=== PATIENT | female | born 1975 | race African-American/Black ===

== ENCOUNTER → 2017-02-24 | Outpatient (CLI) | payer OTHER ==
[~2017-02-24] VITALS: Ht 154.9 cm; Wt 113.4 kg
[~2017-02-24] MED LIST: AZIT250T6 PO; FERR-26 PO; FERR325T31 PO; HYDR-2666 PO; HYDR-971 PO; LABE200T2 PO; NAPR500T3 PO; NIFE60TA PO; PNV1TABL25 PO; SERT100T PO
[2017-02-24 10:54] VITALS: BP 186/98
== END | disposition home or self-care (01) ==
LOC: OPS 09:07
PROVIDERS: ATTEND Specialist
DX: Z32.02 Encounter for pregnancy test, result negative (principal)
CPT/HCPCS: 36415; 86850; 86900; 86901; 96372; J2791

== ENCOUNTER 2017-03-19 16:11 | Inpatient (IN) | payer OTHER ==
[~2017-03-19] VITALS: Ht 157.5 cm; Wt 123.4 kg
[2017-03-19] MEDS ORDERED: IV RINGERS,LACTATED 1000ML 1,000 ML IV SCH (17:00)
[2017-03-19 17:56] LABS: BASO # 0.1 x10^3/uL (0.0-0.2); BASO % 1 % (0-3); EOS % 1 % (0-3); HEMATOCRIT 33.1 % (36.0-47.0); HEMOGLOBIN 10.4 g/dL (12.0-15.5); LYMPH # 1.5 x10^3/uL (1.0-4.8); LYMPH % 17 % (24-48); MEAN CORPUSCULAR HEMOGLOBIN 23 pg (25-35); MEAN CORPUSCULAR HGB CONC 32 g/dL (31-37); MEAN CORPUSCULAR VOLUME 73 fL (79-100); MONO % 11 % (0-9); NEUT % 70 % (31-73); PLATELET COUNT 233 x10^3/uL (140-400); RED BLOOD COUNT 4.52 x10^6/uL (3.50-5.40); WHITE BLOOD COUNT 8.9 x10^3/uL (4.0-11.0)
[2017-03-19 18:10] LABS: ALBUMIN 2.5 g/dL (3.4-5.0); ALBUMIN/GLOBULIN RATIO 0.6 (1.0-1.7); CALCIUM 8.9 mg/dL (8.5-10.1); GFR 73.6; POTASSIUM 4.1 mmol/L (3.5-5.1); TOTAL BILIRUBIN 0.2 mg/dL (0.2-1.0); TOTAL PROTEIN 6.8 g/dL (6.4-8.2); URIC ACID 4.7 mg/dL (2.6-6.0)
[2017-03-19 19:18] LABS: BILIRUBIN,URINE NEGATIVE (NEG); GLUCOSE,URINE NEGATIVE (NEG); NITRITE,URINE NEGATIVE (NEG); PROTEIN,URINE 30 mg/dL (NEG-TRACE); UROBILINOGEN,URINE 0.2 mg/dL (0.2 mg/dL)
[2017-03-19] MEDS: BETAMET ACET&NA PHOS 30 MG/5 ML VIAL. IM SCH (19:23)
[2017-03-19 19:37] LABS: BACTERIA,URINE FEW /HPF (0-FEW); SQUAMOUS EPITHELIAL CELL,UR MOD /LPF
[2017-03-19] MEDS: ZOLPIDEM 5 MG TABLET. PO PRN (21:07)
[2017-03-19] MEDS: LABETALOL HCL 100 MG TABLET. PO SCH (21:10)
[2017-03-20] MEDS: ZOLPIDEM 5 MG TABLET. PO PRN (01:15)
[2017-03-20 04:47] LABS: HEMATOCRIT 32.5 % (36.0-47.0); HEMOGLOBIN 10.1 g/dL (12.0-15.5); RED BLOOD COUNT 4.44 x10^6/uL (3.50-5.40); RED CELL DISTRIBUTION WIDTH 17.5 % (11.5-14.5); WHITE BLOOD COUNT 11.7 x10^3/uL (4.0-11.0)
[2017-03-20 05:31] LABS: ALBUMIN 2.6 g/dL (3.4-5.0); ALBUMIN/GLOBULIN RATIO 0.7 (1.0-1.7); CALCIUM 8.9 mg/dL (8.5-10.1); CREATININE 0.8 mg/dL (0.6-1.0); GFR 95.2; POTASSIUM 4.4 mmol/L (3.5-5.1); TOTAL BILIRUBIN 0.2 mg/dL (0.2-1.0); TOTAL PROTEIN 6.5 g/dL (6.4-8.2)
[2017-03-20] MEDS ORDERED: ACETAMINOPHEN 500 MG TABLET PO PRN (05:45)
[2017-03-20] MEDS: LABETALOL HCL 100 MG TABLET. PO SCH ×2 (09:19→20:54)
[2017-03-20] MEDS ORDERED: DINOPROSTONE 10 MG SUPP.VAG VG ONE (12:00)
[2017-03-20] MEDS ORDERED: IV RINGERS,LACTATED 1000ML 1,000 ML IV SCH (14:33)
[2017-03-20] MEDS ORDERED: OXYTOCIN 30 UNIT/500 ML PREMIX 500 ML IV PRN (14:45)
[2017-03-20] MEDS ORDERED: IBUPROFEN 800 MG TABLET. PO PRN (14:45)
[2017-03-20] MEDS ORDERED: BUPIVACAINE 0.5% 50 ML VIAL. INFIL ONE (14:45)
[2017-03-20] MEDS ORDERED: fentaNYL PF VIAL 100 MCG/2 ML VIAL IV PRN (14:45)
[2017-03-20] MEDS ORDERED: 0.9 % SODIUM CHLORIDE 10 ML DISP.SYRIN. IV PRN (14:45)
[2017-03-20] MEDS ORDERED: TERBUTALINE 1 MG/ML VIAL. SQ PRN (14:45)
[2017-03-20] MEDS ORDERED: LIDOCAINE 1% PF 30 ML VIAL. INJ PRN (14:45)
[2017-03-20] MEDS ORDERED: AMPICILLIN SODIUM 2 GM in IV NORMAL SALINE 100ML 100 ML IV ONE (16:00)
[2017-03-20] MEDS: BETAMET ACET&NA PHOS 30 MG/5 ML VIAL. IM SCH (19:24)
[2017-03-20] MEDS ORDERED: AMPICILLIN SODIUM 1 GM in IV NORMAL SALINE 50ML 50 ML IV SCH (20:00)
[2017-03-20] MEDS: DOXEPIN HCL 25 MG CAPSULE. PO PRN (23:56)
[2017-03-21] MEDS ORDERED: DINOPROSTONE 10 MG SUPP.VAG VG ONE (00:30)
[2017-03-21] MEDS: LABETALOL HCL 100 MG TABLET. PO SCH ×2 (09:25→22:04)
--- NOTE | 2017-03-21 15:27 | RAD ---
Indication evaluate position. A very appreciated examination was performed. The examination was performed primarily to assess for position of the fetus. The fetus is in breech presentation. heart rate of 163 was documented. The biparietal diameter of 9.1 cm and abdominal circumference of 32.3 cm suggest a gestational age of approximately 36 weeks. Femoral length of approximately 6.7 cm suggested gestational age of 34-35 weeks. IMPRESSION: Fetus in breech presentation. Estimated gestational age approximately 35 weeks
[2017-03-21] MEDS ORDERED: IV RINGERS,LACTATED 1000ML 1,000 ML IV SCH (15:35)
[2017-03-21] MEDS ORDERED: CITRIC ACID/SODIUM CITRATE 30 ML SOLUTION. PO ONE (15:45)
[2017-03-21] MEDS: IV RINGERS,LACTATED 1000ML 1,000 ML IV SCH ×2 (16:07→21:27)
[2017-03-21 17:06] LABS: BASO % 0 % (0-3); EOS % 0 % (0-3); HEMATOCRIT 31.3 % (36.0-47.0); HEMOGLOBIN 10.1 g/dL (12.0-15.5); LYMPH # 1.4 x10^3/uL (1.0-4.8); LYMPH % 9 % (24-48); MEAN CORPUSCULAR HEMOGLOBIN 23 pg (25-35); MEAN CORPUSCULAR HGB CONC 32 g/dL (31-37); MEAN CORPUSCULAR VOLUME 72 fL (79-100); MONO % 10 % (0-9); NEUT % 80 % (31-73); PLATELET COUNT 259 x10^3/uL (140-400); RED BLOOD COUNT 4.34 x10^6/uL (3.50-5.40); RED CELL DISTRIBUTION WIDTH 18.3 % (11.5-14.5); WHITE BLOOD COUNT 15.5 x10^3/uL (4.0-11.0)
[2017-03-21] MEDS ORDERED: MORPHINE PF 5 MG/10 ML VIAL. ONE (19:04)
[2017-03-21] MEDS ORDERED: fentaNYL PF VIAL 100 MCG/2 ML VIAL ONE (19:04)
[2017-03-21] MEDS ORDERED: PHENYLEPHRINE in 0.9% NACL PF 1 MG/10 ML DISP.SYRIN. IV ONE (19:20)
[2017-03-21] MEDS ORDERED: OXYTOCIN 10 UNIT/ML VIAL. ONE (19:27)
--- NOTE | 2017-03-21 20:26 | PDOC ---
BRIEF OPERATIVE NOTE Pre-Op Diagnosis 35wk PIH Post-Op Diagnosis Failed induction Breech Procedure Performed primary LTC/S Surgeon Matteo Anesthesia Type: Regional Blood Loss 1300cc Specimens Obtained Placenta Complications None MEGAN MILLER MD March 21, 2017 20:26
[2017-03-21] MEDS ORDERED: SIMETHICONE 80 MG TAB.CHEW PO PRN (20:30)
[2017-03-21] MEDS ORDERED: MMR per PROTOCOL. MC PRN (20:30)
[2017-03-21] MEDS ORDERED: OXYTOCIN 30 UNIT/500 ML PREMIX 500 ML IV PRN (20:30)
[2017-03-21] MEDS ORDERED: ONDANSETRON PF 4 MG/2 ML VIAL. IV PRN (20:30)
[2017-03-21] MEDS ORDERED: MAGNESIUM HYDROXIDE 2,400 MG/30 ML ORAL.SUSP. PO PRN (20:30)
[2017-03-21] MEDS ORDERED: 0.9 % SODIUM CHLORIDE 10 ML DISP.SYRIN. IV PRN (20:30)
[2017-03-21] MEDS ORDERED: oxyCODONE/APAP 5/325 1 TAB TABLET PO PRN ×2 (20:30)
[2017-03-21] MEDS ORDERED: ZOLPIDEM 5 MG TABLET. PO PRN (20:30)
[2017-03-21] MEDS ORDERED: MAG HYDROX/ALUMINUM HYD/SIMETH 30 ML ORAL.SUSP PO PRN (20:30)
[2017-03-21] MEDS ORDERED: NAPROXEN 500 MG TABLET PO SCH (21:00)
[2017-03-21 21:21] LABS: HEMATOCRIT 30.6 % (36.0-47.0); HEMOGLOBIN 9.6 g/dL (12.0-15.5); RED BLOOD COUNT 4.14 x10^6/uL (3.50-5.40); RED CELL DISTRIBUTION WIDTH 18.2 % (11.5-14.5); WHITE BLOOD COUNT 15.2 x10^3/uL (4.0-11.0)
[2017-03-21] MEDS: IBUPROFEN 800 MG TABLET. PO SCH (22:00)
[2017-03-21] MEDS ORDERED: ONDA4TAB10 PO (22:26)
[2017-03-21 23:00] VITALS: BP 154/83
[2017-03-21] MEDS ORDERED: KETOROLAC TROMETHAMINE 30 MG/ML INJ. IV PRN (23:45)
[2017-03-22] VITALS (8 sets, daily range): BP systolic 122–152; BP diastolic 64–86
[2017-03-22] MEDS: diphenhydrAMINE ORAL ELIXIR 12.5 MG/5 ML ML PO PRN ×2 (00:20→05:49)
[2017-03-22] MEDS: IV RINGERS,LACTATED 1000ML 1,000 ML IV SCH (04:17)
[2017-03-22 05:24] LABS: BASO % 0 % (0-3); EOS % 0 % (0-3); HEMATOCRIT 27.5 % (36.0-47.0); HEMOGLOBIN 8.5 g/dL (12.0-15.5); LYMPH # 1.9 x10^3/uL (1.0-4.8); LYMPH % 13 % (24-48); MEAN CORPUSCULAR HEMOGLOBIN 23 pg (25-35); MEAN CORPUSCULAR HGB CONC 31 g/dL (31-37); MEAN CORPUSCULAR VOLUME 74 fL (79-100); MONO % 12 % (0-9); NEUT % 75 % (31-73); PLATELET COUNT 229 x10^3/uL (140-400); RED BLOOD COUNT 3.72 x10^6/uL (3.50-5.40); RED CELL DISTRIBUTION WIDTH 17.7 % (11.5-14.5); WHITE BLOOD COUNT 14.6 x10^3/uL (4.0-11.0)
[2017-03-22] MEDS: DOCUSATE SODIUM 100 MG CAPSULE. PO PRN ×2 (08:27→21:17)
[2017-03-22] MEDS: FERROUS SULFATE 325 MG TABLET. PO SCH ×2 (08:27→17:26)
[2017-03-22] MEDS: oxyCODONE/APAP 5/325 1 TAB TABLET PO PRN (09:35)
[2017-03-22] MEDS: IBUPROFEN 800 MG TABLET. PO SCH ×2 (11:39→21:17)
--- NOTE | 2017-03-22 13:27 | PDOC ---
Provider Note Provider Note Doing well VSS Hgb 8.5 Dressing CDI Check CBC in AM FU in AM MEGAN MILLER MD March 22, 2017 13:27
[2017-03-22] MEDS: DOXEPIN HCL 25 MG CAPSULE. PO PRN (21:17)
[2017-03-22] MEDS: LABETALOL HCL 100 MG TABLET. PO SCH (21:19)
[2017-03-22 22:13] LABS: RPR REFLEX Non Reactive (Non Reactive)
[2017-03-23] MEDS: oxyCODONE/APAP 5/325 1 TAB TABLET PO PRN ×2 (05:41→12:01)
[2017-03-23 05:45] VITALS: BP 157/82
[2017-03-23 06:47] LABS: BASO # 0.1 x10^3/uL (0.0-0.2); BASO % 1 % (0-3); EOS % 3 % (0-3); HEMATOCRIT 27.1 % (36.0-47.0); HEMOGLOBIN 8.5 g/dL (12.0-15.5); LYMPH # 2.5 x10^3/uL (1.0-4.8); LYMPH % 19 % (24-48); MEAN CORPUSCULAR HEMOGLOBIN 23 pg (25-35); MEAN CORPUSCULAR HGB CONC 31 g/dL (31-37); MEAN CORPUSCULAR VOLUME 74 fL (79-100); MONO % 10 % (0-9); NEUT % 67 % (31-73); PLATELET COUNT 205 x10^3/uL (140-400); RED BLOOD COUNT 3.66 x10^6/uL (3.50-5.40); RED CELL DISTRIBUTION WIDTH 18.2 % (11.5-14.5); WHITE BLOOD COUNT 13.6 x10^3/uL (4.0-11.0)
[2017-03-23] MEDS: FERROUS SULFATE 325 MG TABLET. PO SCH (09:58)
[2017-03-23] MEDS: IBUPROFEN 800 MG TABLET. PO SCH (09:58)
[2017-03-23] MEDS: DOCUSATE SODIUM 100 MG CAPSULE. PO PRN (09:58)
[2017-03-23] MEDS: LABETALOL HCL 100 MG TABLET. PO SCH (09:58)
[2017-03-23] MEDS ORDERED: NAPR500T PO (10:12)
[2017-03-23] MEDS ORDERED: HYDR-965 PO (10:12)
[2017-03-23 10:27] LABS: UR PROTEIN RD 58.8 mg/dL (Not Estab.)
[2017-03-23 10:59] LABS: % EOS 1 % (0-5)
[2017-03-23 11:00] LABS: PLT ESTIMATE ADEQUATE (ADEQUATE)
[2017-03-23 11:01] LABS: ANISOCYTOSIS SLIGHT; HYPOCHROMIA PRESENT; MICROCYTOSIS SLIGHT
[2017-03-23 13:30] VITALS: BP 125/54
--- NOTE | 2017-03-25 13:11 | PATHOLOGY ---
PATHOLOGY REPORT * * * * * * * * FINAL DIAGNOSIS: 642 gram late placenta of an estimated 35 weeks gestation with attached membranes and umbilical cord: - Focal recent intervillous hemorrhage. COMMENT: There are no infarcts. There is no evidence of abruption. (JENNIFERM:; d/t: 03/25/17) REPORT ELECTRONICALLY SIGNED BY: Taj Aggarwal M.D. DATE/TIME: 03/25/2017 13:10 * * * * * * * * GROSS PATHOLOGY: The specimen is received in formalin labeled "Jonathan" is a 19.3 x 17.6 x 3.0 cm watkins placenta with a 46 cm long umbilical cord. The 3 vessel umbilical cord inserts paracentrally with 4 twists per 5-6 cm. The membranes are bluish noble with marginal insertion. The point of rupture is 4 cm from the edge of the disc. The surface is intact. The maternal surface is also intact. After removal of the membranes and umbilical cord, the placenta weighs 642 g. Sectioning reveals a red beefy unremarkable cut surface. Section code: A1-membranes and umbilical cord, [id number] section adjacent to umbilical cord insertion site, A3 through [id number] accounts payable representative sections of placenta full thickness. (AKA; 03/24/2017) INITIAL CPT CODE(S): A; 13833 Professional services performed by [facility] [place] [address] Technical services performed by [facility] at [address] [place] [address] [address] [place] [address]. SPECIMEN(S) RECEIVED: A.Placenta with cord CLINICAL HISTORY: IUP, for breech position, EDC 04/24/17, 5lb 15oz male @ 1932 on 03/21/17, apgars 8-8-9, , PIH, baby transferred to [facility] PATIENT: MELODY YEAGER /AGE: 1 1975 (Age: 41) PATIENT #: [id number] ALT CASE #: SPECIMEN COLLECTION DATE: 03/21/2017 SPECIMEN RECEIVED DATE: 03/23/2017 [facility] - [address] [place] [address] - PHONE: [phone] * * * END OF REPORT * * *
--- NOTE | 2017-03-30 22:48 | OP ---
DATE OF SURGERY: 03/21/2017 PREOPERATIVE DIAGNOSES: 1. Failed induction. 2. Breech presentation. 3. -induced hypertension. POSTOPERATIVE DIAGNOSES: 1. Failed induction. 2. Breech presentation. PROCEDURE: Primary low-transverse . SURGEON: Onur Felipe M.D. CREATIVE ARTS THERAPIST: None. ANESTHESIA: Regional. ESTIMATED BLOOD LOSS: 1300 mL. SPECIMENS: Placenta. FINDINGS: Normal uterus, tubes, and ovaries, normal male . COMPLICATIONS: None. CONDITION: Stable. DESCRIPTION OF PROCEDURE: After risks, benefits, indications, alternatives were discussed in detail with the patient, the patient was brought to the OR theater, placed in supine position with left lateral uterine displacement. After adequate regional anesthesia, the patient prepped and draped in usual sterile manner. A low transverse Pfannenstiel incision was made sharply with scalpel, carried down through subcutaneous tissue with Bovie cautery. Rectus fascia was nicked in the midline and extended laterally in each direction with Bovie cautery. Upper edge of rectus fascia was grasped x 2 with Arline clamps and elevated above the rectus muscle, both bluntly and sharply with a gloved hand and Bovie cautery. Rectus muscle split in the midline. Parietal peritoneum was entered bluntly with gentle stretch on the rectus muscle and room was made for delivery of the infant. Anton retractor was placed. Low transverse hysterotomy incision was made sharply with a scalpel with care not injuring underlying structures. The incision was extended upward and laterally with gloved hand. Gloved hand was placed within the lower uterine segment after membranes were ruptured with Allis clamp. ____ was delivered in usual fashion without any difficulties. cried spontaneously and moved all extremities. Cord was doubly clamped. The was handed off to nursing care in attendance. Cord blood samples were taken. Placenta delivered spontaneously intact, 3-vessel cord. Uterus was wiped clean of any adherent membranes with a laparotomy sponge. A low transverse hysterotomy incision was reapproximated with 0 Monocryl in a running locking manner, imbricated with 0 Monocryl in a vertical mattress stitch fashion. The bladder flap was reapproximated with 3-0 Vicryl in a running manner. Pelvic gutters were inspected and noted to be free of any blood or debris. The Anton retractor was removed. Rectus muscles reapproximated with 3-0 Vicryl in a running manner. The rectus muscles were inspected and noted to be hemostatic. Rectus fascia was reapproximated with 0 PDS in a running manner. Subcutaneous tissue was irrigated copiously with warm normal saline. Chely's fascia was reapproximated with 2-0 plain. Skin was reapproximated with Insorb kisha. Sponge, needle and instrument counts were correct x 2 per nursing staff. The patient went to postop anesthesia recovery in stable condition. ONUR FELIPE MD DR: LON/peter JOB#: [id number] / [id number]
--- NOTE | 2017-04-02 13:48 | PDOC1 ---
OB - History Hx of Present Care: Good Care Ultrasounds: Normal mid trimester US Obstetrical Complications: Pre-eclampsia, Gestational Hypertension Medical Complications: Cardiovascular Past Family/Social History * Past Medical, Surgical, Family and Obstetric Histories reviewed from chart. Blood Type: O- Rubella: Immune RPR/VDRL: Negative HBsAG: Negative OB - Chief Complaint & HPI Date of Admission: Date of Admission: March 19, 2017 at 16:15 Chief Complaint/History : 4 Para: 1 EDC: Apr 24, 2017 Reason for admission: induction of labor Indication for induction: medical complication Admission Nurse Assessment Rev: Yes Problems: OB - Admission Exam Physical Exam HEENT: Normal, Nasal Mucosa Normal, Oropharynx Normal, Moist Membranes, Fontanelles Normal Heart: Regular Rate Lungs: Clear, Equal Abdomen: Gravid Extremities: Normal Pulses, No tenderness or swelling Reflexes: Normal Cervical Dilatation: None Effacement: 50% Station: Ballotable Membranes: Intact Heart Rate: Normal Accelerations: Accelerations Present Contractions on Admission: None Assessment/Plan Assessment/Plan 35wk IUP Severe preeclampsia Cervidil induction ACSVD MEGAN MILLER MD April 02, 2017 13:48
== END 2017-03-23 14:30 | disposition home or self-care (01) | DRG 766 ==
LOC: 3 SO LND 16:11 → OBSVTOIN 16:15 → 3 SO LND 03-20 13:37
PROVIDERS: ADMIT Specialist; ATTEND Specialist
PROC: 10D00Z1 Extraction of Products of Conception, Low, Open Approach (ICD-10-PCS; principal; 2017-03-21)
PROC: 3E0334Z Introduction of Serum, Toxoid and Vaccine into Peripheral Vein, Percutaneous Approach (ICD-10-PCS; 2017-03-22)
DX: O32.9XX0 Maternal care for malpresentation of fetus, unspecified, not applicable or unspecified (principal); Z37.0 Single live birth; Z3A.35 35 weeks gestation of pregnancy; O13.4 Gestational [pregnancy-induced] hypertension without significant proteinuria, complicating childbirth; O61.9 Failed induction of labor, unspecified; O09.523 Supervision of elderly multigravida, third trimester; O14.94 Unspecified pre-eclampsia, complicating childbirth
CPT/HCPCS: 36415; 76815; 80053; 81001; 82570; 84156; 84550; 85007; 85027; 85461; 86593; 86850; 86870; 86900; 86901; 87086; 88307; G0378; G0379; J0690; J0702; J1885; J2270; J2370; J2590; J2791; J3010; J7120

== ENCOUNTER 2017-05-31 22:42 | Emergency (ER) | payer OTHER ==
[~2017-05-31] VITALS: Ht 154.9 cm; Wt 113.4 kg
[~2017-05-31 22:42] MED LIST changes: +FERR-36 PO; -FERR325T31 PO; -HYDR-2666 PO; +HYDR-2758 PO; +HYDR-965 PO; +NAPR500T PO; +ONDA4TAB10 PO
[2017-06-01 00:17] VITALS: BP 166/87
--- NOTE | 2017-06-01 00:18 | PHYS DOC ---
Past Medical History Past Medical History: Anxiety, Hypertension Additional Past Medical Histor: TUBAL Past Surgical History: , Other Additional Past Surgical Histo: BREAST REDUCTION AND TUBAL LIGATION Alcohol Use: None Drug Use: None Adult General Chief Complaint Chief Complaint: HYPERTENSION HPI HPI Patient is a 41 year old female who comes to the ED with the complaint of elevated blood pressure today. The patient does have a history of hypertension. She had hypertension treated with amlodipine, before she got , and was then switched to labetalol by her CYTOLOGY MANAGER doctor, Dr. Felipe. She took labetalol during her and delivered in early March. Her blood pressure continued to run high at about 2 months ago she was increased to labetalol 200 mg twice a day. She has been taking it as directed and has not missed any doses. Today, the patient had a headache. She didn't take anything for her headache. She thought it might get better if she went swimming and in fact she did go swimming and her headache did go away. After swimming and resolution of her headache, she rechecked her blood pressure and found it was still running high in the 170 systolic range which concerned her so she came to the ED. She has not had her evening dose of labetalol yet. The patient is breast-feeding. PCP, she sees a nurse practitioner in Dr. Jordan's office. Review of Systems Review of Systems Constitutional: Denies fever or chills [] Eyes: Denies change in visual acuity, redness, or eye pain [] HENT: Denies nasal congestion or sore throat [] Respiratory: Denies shortness of breath [] Cardiovascular: Denies chest pain GI: Denies nausea, vomiting, bloody stools or diarrhea [] Musculoskeletal: Denies back pain or joint pain [] Integument: Denies rash or skin lesions [] Neurologic: She had a bi frontal headache earlier today but it went away without treatment Allergies Allergies Allergies Coded Allergies Type Severity Reaction Last Updated Verified No Known Drug Allergies 02/24/17 No Physical Exam Physical Exam Constitutional: Well developed, well nourished, no acute distress, non-toxic appearance. Alert, mentating normally. HENT: Normocephalic, atraumatic, bilateral external ears normal, nose normal. [ ] Eyes: conjunctiva normal, no discharge. [] Neck: Normal range of motion, no stridor. [] Cardiovascular:Heart rate regular rhythm, no murmur [] Lungs & Thorax: Bilateral breath sounds clear to auscultation [] Skin: Warm, dry, no erythema, no rash. [] Extremities: No tenderness, no cyanosis, no clubbing, ROM intact, no edema. [] Neurologic: Alert and oriented X 3, normal motor function, normal sensory function, no focal deficits noted. [] Current Patient Data Vital Signs Vital Signs Date Time Temp Pulse Resp B/P (MAP) Pulse Ox O2 Delivery O2 Flow Rate FiO2 06/01/17 00:17 84 18 166/87 (113) 96 Room Air 05/31/17 23:02 98.7 98.7 EKG EKG [] Radiology/Procedures Radiology/Procedures [] Course & Med Decision Making Course & Med Decision Making Pertinent Labs and Imaging studies reviewed. (See chart for details) Blood pressure here is 166/87 41-year-old female presents with her blood pressure running high today. She is a patient with a history of hypertension before she got , has gone through with treatment of her hypertension and delivery on March 21, and continues to have elevated blood pressure. I don't believe the patient has preeclampsia/eclampsia at this time, she has been simply a lady who has had hypertension for some time. Although she had a headache earlier today, it went away without any treatment and she now has no complaints other than her concern for her blood pressure. I discussed with the patient that I like to leave blood pressure treatment up to her OB physician since she is still breast-feeding. I reassured her that although her blood pressure is moderately elevated, I believe she can safely take her dose of labetalol that is due and follow-up by calling the office tomorrow. She feels comfortable with that plan. [] Dragon Disclaimer Dragon Disclaimer This electronic medical record was generated, in whole or in part, using a voice recognition dictation system. Departure Departure Impression: Primary Impression: Hypertension Disposition: 01 HOME, SELF-CARE Condition: STABLE Referrals: MISSAEL JORDAN MD (PCP) Patient Instructions: Hypertension Additional Instructions: Go ahead and take your evening dose of labetalol that is scheduled. If you need to take Tylenol (acetaminophen) or ibuprofen (Motrin or Advil) for headache, these are safe to take while you are breast-feeding. Call Dr. Felipe's office tomorrow and let him know that your blood pressure is still running high and see what he recommends. Follow-up with Dr. Felipe for further blood pressure management. As long as you are breast-feeding, we need to be cautious of what medication to take since they will get into your breastmilk and go to your baby. DUNG CALDERON MD Jun 01, 2017 00:18
--- NOTE | 2017-06-01 10:42 | EKG ---
[facility] [address] [place] [address] Test Date: 2017-05-31 Test Time: 22:56:53 Pat Name: MELODY YEAGER Department: Room: Gender: F Lawn Care Specialist: : 1975 Requested By: DUNG CALDERON Order Number: [id number] Reading MD: Measurements Intervals Elliott Rate: 88 P: 43 NE: 152 QRS: -4 QRSD: 86 T: 42 QT: 406 QTc: 495 Interpretive Statements SINUS RHYTHM LEFT ATRIAL ABNORMALITY LEFTWARD AXIS PROLONGED QT ABNORMAL ECG RI6.01 No previous ECG available for comparison
== END 2017-06-01 00:35 | disposition home or self-care (01) ==
LOC: ER 22:42
DX: I10 Essential (primary) hypertension (principal); F41.9 Anxiety disorder, unspecified
CPT/HCPCS: 93005; 99284-25

== ENCOUNTER 2017-10-18 09:51 | Emergency (ER) | payer OTHER, BC ==
[~2017-10-18] VITALS: Ht 157.5 cm; Wt 117.9 kg
[~2017-10-18 09:51] MED LIST changes: +NAPR-683 PO; -NAPR500T PO; -NAPR500T3 PO; +NAPR500T4 PO
[2017-10-18] MEDS ORDERED: IV NORMAL SALINE 1000ML BAG 1,000 ML IV SCH (10:25)
[2017-10-18] MEDS ORDERED: ONDANSETRON PF 4 MG/2 ML VIAL. IV ONE (10:30)
[2017-10-18 10:56] LABS: BASO % 0 % (0-3); EOS % 1 % (0-3); HEMOGLOBIN 12.6 g/dL (12.0-15.5); LYMPH # 0.8 x10^3/uL (1.0-4.8); LYMPH % 10 % (24-48); MEAN CORPUSCULAR HEMOGLOBIN 24 pg (25-35); MEAN CORPUSCULAR HGB CONC 31 g/dL (31-37); MEAN CORPUSCULAR VOLUME 77 fL (79-100); MONO % 8 % (0-9); NEUT % 81 % (31-73); PLATELET COUNT 246 x10^3/uL (140-400); RED BLOOD COUNT 5.18 x10^6/uL (3.50-5.40); RED CELL DISTRIBUTION WIDTH 17.2 % (11.5-14.5); WHITE BLOOD COUNT 7.5 x10^3/uL (4.0-11.0)
[2017-10-18 10:57] LABS: BILIRUBIN,URINE NEGATIVE (NEG); GLUCOSE,URINE NEGATIVE (NEG); NITRITE,URINE NEGATIVE (NEG); PH,URINE 6.5; PROTEIN,URINE 100 mg/dL (NEG-TRACE); UROBILINOGEN,URINE 0.2 mg/dL (0.2 mg/dL)
[2017-10-18 11:04] LABS: CALCIUM 8.6 mg/dL (8.5-10.1); CREATININE 1.1 mg/dL (0.6-1.0); GFR 65.9; POTASSIUM 3.2 mmol/L (3.5-5.1)
[2017-10-18 11:11] LABS: ALBUMIN 3.6 g/dL (3.4-5.0); DIRECT BILIRUBIN 0.1 mg/dL (0.0-0.2); TOTAL BILIRUBIN 0.4 mg/dL (0.2-1.0); TOTAL PROTEIN 7.6 g/dL (6.4-8.2)
--- NOTE | 2017-10-18 11:17 | PHYS DOC ---
Past Medical History Past Medical History: Anxiety, Hypertension Additional Past Medical Histor: TUBAL Past Surgical History: , Other Additional Past Surgical Histo: BREAST REDUCTION AND TUBAL LIGATION Alcohol Use: None Drug Use: None Adult General Chief Complaint Chief Complaint: NAUSEA/VOMITING/DIARRHA HPI HPI Patient is a 41 year old -Tog[place] female who presents with nausea and vomiting. She states that her 2-year-old daughter was diagnosed with some nausea prior to 4 days ago seen at [facility] given Zofran. Last night the family ate at [employer] and then early this morning he started having nausea vomiting diarrhea. Patient states that she's only had vomiting and nausea. She's vomited several times nonbloody nonbilious vomiting. She denies any abdominal pain, she does get some cramps occasionally. She thought she was constipated since she took some MiraLAX this morning. Still has not had a bowel movement. She is a male in the halls with her 2-year-old daughter in no acute distress. Review of Systems Review of Systems Constitutional: Denies fever or chills [] Eyes: Denies change in visual acuity, redness, or eye pain [] HENT: Denies nasal congestion or sore throat [] Respiratory: Denies cough or shortness of breath [] Cardiovascular: No additional information not addressed in HPI [] GI: Denies abdominal pain, bloody stools or diarrhea, positive for nausea, vomiting, : Denies dysuria or hematuria [] Musculoskeletal: Denies back pain or joint pain [] Integument: Denies rash or skin lesions [] Neurologic: Denies headache, focal weakness or sensory changes [] Endocrine: Denies polyuria or polydipsia [] All other systems were reviewed and found to be within normal limits, except as documented in this note. Current Medications Current Medications Current Medications Medications (Trade) Dose Ordered Sig/Jamari Start Time Stop Time Status Last Admin Dose Admin Ondansetron HCl (Zofran) 4 mg 1X ONCE 10/18/17 10:30 10/18/17 10:31 DC 10/18/17 11:04 4 MG Sodium Chloride 1,000 ml @ 1,000 mls/hr Q1H 10/18/17 10:25 10/18/17 11:24 DC 10/18/17 11:04 1,000 MLS/HR Allergies Allergies Allergies Coded Allergies Type Severity Reaction Last Updated Verified No Known Drug Allergies 02/24/17 No Physical Exam Physical Exam Constitutional: Well developed, well nourished, no acute distress, non-toxic appearance. [] HENT: Normocephalic, atraumatic, bilateral external ears normal, oropharynx moist, no oral exudates, nose normal. [] Eyes: PERRLA, EOMI, conjunctiva normal, no discharge. [] Neck: Normal range of motion, no tenderness, supple, no stridor. [] Cardiovascular:Heart rate regular rhythm, no murmur [] Lungs & Thorax: Bilateral breath sounds clear to auscultation [] Abdomen: Bowel sounds normal, soft, no tenderness, no masses, no pulsatile masses. [] Skin: Warm, dry, no erythema, no rash. [] Back: No tenderness, no CVA tenderness. [] Extremities: No tenderness, no cyanosis, no clubbing, ROM intact, no edema. [] Neurologic: Alert and oriented X 3, normal motor function, normal sensory function, no focal deficits noted. [] Psychologic: Affect normal, judgement normal, mood normal. [] Current Patient Data Vital Signs Vital Signs Date Time Temp Pulse Resp B/P (MAP) Pulse Ox O2 Delivery O2 Flow Rate FiO2 10/18/17 11:03 91 149/97 (114) 96 Room Air 10/18/17 10:17 98.9 16 98.9 Lab Values Laboratory Tests Test 10/18/17 10:38 10/18/17 10:45 10/18/17 10:48 White Blood Count 7.5 x10^3/uL (4.0-11.0) Red Blood Count 5.18 x10^6/uL (3.50-5.40) Hemoglobin 12.6 g/dL (12.0-15.5) Hematocrit 40.0 % (36.0-47.0) Mean Corpuscular Volume 77 fL (79-100) L Mean Corpuscular Hemoglobin 24 pg (25-35) L Mean Corpuscular Hemoglobin Concent 31 g/dL (31-37) Red Cell Distribution Width 17.2 % (11.5-14.5) H Platelet Count 246 x10^3/uL (140-400) Neutrophils (%) (Auto) 81 % (31-73) H Lymphocytes (%) (Auto) 10 % (24-48) L Monocytes (%) (Auto) 8 % (0-9) Eosinophils (%) (Auto) 1 % (0-3) Basophils (%) (Auto) 0 % (0-3) Neutrophils # (Auto) 6.0 x10^3uL (1.8-7.7) Lymphocytes # (Auto) 0.8 x10^3/uL (1.0-4.8) L Monocytes # (Auto) 0.6 x10^3/uL (0.0-1.1) Eosinophils # (Auto) 0.1 x10^3/uL (0.0-0.7) Basophils # (Auto) 0.0 x10^3/uL (0.0-0.2) Prothrombin Time 12.8 SEC (11.7-14.0) Prothrombin Time INR 1.0 (0.8-1.1) PTT 28 SEC (24-38) Sodium Level 142 mmol/L (136-145) Potassium Level 3.2 mmol/L (3.5-5.1) L Chloride Level 101 mmol/L (98-107) Carbon Dioxide Level 33 mmol/L (21-32) H Anion Gap 8 (6-14) Blood Urea Nitrogen 13 mg/dL (7-20) Creatinine 1.1 mg/dL (0.6-1.0) H Estimated GFR (Cockcroft-Gault) 65.9 Glucose Level 102 mg/dL (70-99) H Calcium Level 8.6 mg/dL (8.5-10.1) Total Bilirubin 0.4 mg/dL (0.2-1.0) Direct Bilirubin 0.1 mg/dL (0.0-0.2) Aspartate Amino Transferase (AST) 23 U/L (15-37) Alanine Aminotransferase (ALT) 30 U/L (14-59) Alkaline Phosphatase 134 U/L (46-116) H Creatine Kinase 378 U/L (26-192) H Creatine Kinase MB (Mass) 0.9 ng/mL (0.0-3.6) Creatine Kinase MB Relative Index 0.2 % (0-4) Total Protein 7.6 g/dL (6.4-8.2) Albumin 3.6 g/dL (3.4-5.0) Lipase 96 U/L (73-393) Urine Collection Type Unknown Urine Color Yellow Urine Clarity Clear Urine pH 6.5 Urine Specific Monroe 1.025 Urine Protein 100 mg/dL (NEG-TRACE) Urine Glucose (UA) Negative mg/dL (NEG) Urine Ketones (Stick) Negative mg/dL (NEG) Urine Blood Negative (NEG) Urine Nitrite Negative (NEG) Urine Bilirubin Negative (NEG) Urine Urobilinogen Dipstick 0.2 mg/dL (0.2 mg/dL) Urine Leukocyte Esterase Negative (NEG) Urine RBC 0 /HPF (0-2) Urine WBC 0 /HPF (0-4) Urine Squamous Epithelial Cells Many /LPF Urine Bacteria Few /HPF (0-FEW) Urine Mucus Marked /LPF POC Urine HCG, Qualitative Hcg negative (Negative) Laboratory Tests 10/18/17 10:38 Laboratory Tests 10/18/17 10:38 EKG EKG [] Radiology/Procedures Radiology/Procedures [] Impressions: Viral gastroenteritis Course & Med Decision Making Course & Med Decision Making Pertinent Labs and Imaging studies reviewed. (See chart for details) Labs, vitals, nonacute. Patient is here with 2 other family members his exact same symptoms. They'll have any blood in her stool or vomit and labs are nonacute. We'll discharge home after she is received IV fluids with ODT Zofran. Patient's agreeable plan, return precautions given. There is stable condition at this time. Dragon Disclaimer Dragon Disclaimer This electronic medical record was generated, in whole or in part, using a voice recognition dictation system. Departure Departure Impression: Primary Impression: Gastroenteritis Disposition: 01 HOME, SELF-CARE Condition: STABLE Referrals: MISSAEL JORDAN MD (PCP) Patient Instructions: Viral Gastroenteritis Additional Instructions: You were seen for nausea vomiting. You likely have gastroenteritis. Your potassium is slightly low and you will need to eat a couple bananas at home to help correct this. You will need to follow-up with her primary care physician have your lab work rate checked. Your being discharged with Zofran which is an oral dissolvable tablet for nausea. Please try to eat a bland diet over the next couple of days.You can always drink Gatorade as it has plenty of electrolytes in it until you get back to eating regular food. Return back to ER for severe pain, lung your stool or vomit, uncontrolled nausea vomiting or other concerns. Scripts Ondansetron (ZOFRAN ODT) 4 Mg Tab.rapdis 1 TAB SL Q8HRS Y for NAUSEA, #5 TAB Prov: MARTINE MAYER MD 10/18/17 MARTINE MAYER MD Oct 18, 2017 11:17
[2017-10-18 11:19] LABS: CKMB MASS 0.9 ng/mL (0.0-3.6)
[2017-10-18 11:23] LABS: BACTERIA,URINE FEW /HPF (0-FEW); RBC,URINE 0 /HPF (0-2); WBC,URINE 0 /HPF (0-4)
[2017-10-18 11:24] LABS: SQUAMOUS EPITHELIAL CELL,UR MANY /LPF
[2017-10-18 11:30] VITALS: BP 148/100
[2017-10-18 11:33] LABS: PROTHROMBIN TIME PATIENT 12.8 SEC (11.7-14.0)
[2017-10-18] MEDS ORDERED: ONDA4TAB10 SL (11:48)
== END 2017-10-18 12:09 | disposition home or self-care (01) ==
LOC: ER 09:51
DX: K52.9 Noninfective gastroenteritis and colitis, unspecified (principal); F41.9 Anxiety disorder, unspecified; I10 Essential (primary) hypertension
CPT/HCPCS: 36415; 80048; 80076; 81001; 81025; 82553; 83690; 85025; 85610; 85730; 96361; 96374; 99284; J2405; J7030

== ENCOUNTER → 2018-04-15 | Outpatient (CLI) | payer BC, OTHER | END | disposition home or self-care (01) | LOC: US 11:52 | DX: I87.2 Venous insufficiency (chronic) (peripheral) (principal); I10 Essential (primary) hypertension; I83.93 Asymptomatic varicose veins of bilateral lower extremities | CPT/HCPCS: 93306; 93970 ==

== ENCOUNTER → 2018-06-03 | Outpatient (CLI) | payer BC | END | disposition home or self-care (01) | LOC: US 14:09 | DX: I87.2 Venous insufficiency (chronic) (peripheral) (principal); I10 Essential (primary) hypertension; Z98.890 Other specified postprocedural states | CPT/HCPCS: 93970 ==

== ENCOUNTER 2019-06-21 05:06 | Emergency (ER) | payer BC ==
[~2019-06-21 05:06] MED LIST changes: -FERR-26 PO; +FERR325T14 PO; -HYDR-2758 PO; +HYDR-2761 PO; +HYDR-3164 PO; +HYDR-3165 PO; -HYDR-965 PO; -HYDR-971 PO; -LABE200T2 PO; +LABE200T4 PO; +NAPR-514 PO; -NAPR500T4 PO; +ONDA4TAB10 SL
[2019-06-21 08:34] LABS: CALCIUM 8.3 mg/dL (8.5-10.1); CREATININE 0.9 mg/dL (0.6-1.0); GFR 82.3
[2019-06-21 08:56] LABS: U PREG PATIENT NEGATIVE (NEG)
[2019-06-21 08:57] LABS: BILIRUBIN,URINE NEGATIVE (NEG); CLARITY,URINE CLOUDY; COLOR,URINE YELLOW; NITRITE,URINE NEGATIVE (NEG); PH,URINE 7.5; PROTEIN,URINE 30 mg/dL (NEG-TRACE); UROBILINOGEN,URINE 0.2 mg/dL (0.2 mg/dL)
[2019-06-21 08:58] LABS: RBC,URINE TNTC /HPF (0-2)
[2019-06-21 08:59] LABS: BACTERIA,URINE FEW /HPF (0-FEW); SQUAMOUS EPITHELIAL CELL,UR FEW /LPF
[2019-06-21 09:05] LABS: BASO % 1 % (0-3); EOS # 0.2 x10^3/uL (0.0-0.7); EOS % 3 % (0-3); HEMATOCRIT 36.2 % (36.0-47.0); HEMOGLOBIN 11.6 g/dL (12.0-15.5); LYMPH # 1.8 x10^3/uL (1.0-4.8); LYMPH % 31 % (24-48); MEAN CORPUSCULAR HEMOGLOBIN 24 pg (25-35); MEAN CORPUSCULAR HGB CONC 32 g/dL (31-37); MEAN CORPUSCULAR VOLUME 74 fL (79-100); MONO # 0.5 x10^3/uL (0.0-1.1); MONO % 8 % (0-9); NEUT # 3.3 x10^3/uL (1.8-7.7); NEUT % 57 % (31-73); PLATELET COUNT 254 x10^3/uL (140-400); RED BLOOD COUNT 4.91 x10^6/uL (3.50-5.40); RED CELL DISTRIBUTION WIDTH 18.1 % (11.5-14.5); WHITE BLOOD COUNT 5.7 x10^3/uL (4.0-11.0)
--- NOTE | 2019-06-21 09:13 | PHYS DOC ---
Past Medical History Past Medical History: Anxiety, Hypertension Additional Past Medical Histor: TUBAL Past Surgical History: , Other Additional Past Surgical Histo: BREAST REDUCTION AND TUBAL LIGATION Alcohol Use: None Drug Use: None Adult General Chief Complaint Chief Complaint: ABDOMINAL PAIN HPI HPI Patient is a 43 year old female with history of ovarian cysts, ruptured ectopic , right tubal ligation, who presents acute onset right sided pelvic pain for the past 2 days. Patient denies urinary frequency urgency or dysuria. Does report hematuria and she is currently on her menstrual period. States pain is worse with palpation, movement. Patient is unable to find position of comfort. No medication or therapy sticking prior to ED arrival. Patient states symptoms feel similar to previous ectopic . No other abdominal surgeries. No other symptoms or complaints. [] Review of Systems Review of Systems Review of symptoms as per history of present illness. All other review symptoms are negative.] All other systems were reviewed and found to be within normal limits, except as documented in this note. Allergies Allergies Allergies Coded Allergies Type Severity Reaction Last Updated Verified No Known Drug Allergies 02/24/17 No Physical Exam Physical Exam Constitutional: Well developed, well nourished, moderate discomfort secondary to pain.. [] HENT: Normocephalic, atraumatic, bilateral external ears normal, oropharynx moist, no oral exudates, nose normal. [] Eyes: PERRLA, EOMI, conjunctiva normal, no discharge. [] Neck: Normal range of motion, no tenderness. [] Cardiovascular:Heart rate regular rhythm, no murmur [] Lungs & Thorax: Bilateral breath sounds clear to auscultation [] Abdomen: Bowel sounds normal, soft, right lower quadrant pain/tenderness, no rebound rigidity or guarding.. [] Skin: Warm, dry, no erythema, no rash. [] Back: No tenderness. [] Extremities: No tenderness, no edema. [] Neurologic: Alert and oriented X 3, normal motor function, normal sensory function, no focal deficits noted. [] Psychologic: Affect normal, judgement normal, mood normal. [] Current Patient Data Lab Values Laboratory Tests Test 06/21/19 05:30 06/21/19 05:46 White Blood Count 5.7 x10^3/uL (4.0-11.0) Red Blood Count 4.91 x10^6/uL (3.50-5.40) Hemoglobin 11.6 g/dL (12.0-15.5) L Hematocrit 36.2 % (36.0-47.0) Mean Corpuscular Volume 74 fL (79-100) L Mean Corpuscular Hemoglobin 24 pg (25-35) L Mean Corpuscular Hemoglobin Concent 32 g/dL (31-37) Red Cell Distribution Width 18.1 % (11.5-14.5) H Platelet Count 254 x10^3/uL (140-400) Neutrophils (%) (Auto) 57 % (31-73) Lymphocytes (%) (Auto) 31 % (24-48) Monocytes (%) (Auto) 8 % (0-9) Eosinophils (%) (Auto) 3 % (0-3) Basophils (%) (Auto) 1 % (0-3) Neutrophils # (Auto) 3.3 x10^3/uL (1.8-7.7) Lymphocytes # (Auto) 1.8 x10^3/uL (1.0-4.8) Monocytes # (Auto) 0.5 x10^3/uL (0.0-1.1) Eosinophils # (Auto) 0.2 x10^3/uL (0.0-0.7) Basophils # (Auto) 0.0 x10^3/uL (0.0-0.2) Sodium Level 143 mmol/L (136-145) Potassium Level 3.0 mmol/L (3.5-5.1) L Chloride Level 104 mmol/L (98-107) Carbon Dioxide Level 29 mmol/L (21-32) Anion Gap 10 (6-14) Blood Urea Nitrogen 11 mg/dL (7-20) Creatinine 0.9 mg/dL (0.6-1.0) Estimated GFR (Cockcroft-Gault) 82.3 Glucose Level 121 mg/dL (70-99) H Calcium Level 8.3 mg/dL (8.5-10.1) L Urine Collection Type Unknown Urine Color Yellow Urine Clarity Cloudy Urine pH 7.5 Urine Specific [place] 1.010 Urine Protein 30 mg/dL (NEG-TRACE) Urine Glucose (UA) Negative mg/dL (NEG) Urine Ketones (Stick) Negative mg/dL (NEG) Urine Blood Large (NEG) Urine Nitrite Negative (NEG) Urine Bilirubin Negative (NEG) Urine Urobilinogen Dipstick 0.2 mg/dL (0.2 mg/dL) Urine Leukocyte Esterase Negative (NEG) Urine RBC Tntc /HPF (0-2) Urine WBC 1-4 /HPF (0-4) Urine Squamous Epithelial Cells Few /LPF Urine Bacteria Few /HPF (0-FEW) Urine Mucus Slight /LPF Urine Test Negative (NEG) Laboratory Tests 06/21/19 05:30 Laboratory Tests 06/21/19 05:30 EKG EKG [] Radiology/Procedures Radiology/Procedures [Ultrasound: Uterine fibroids present, left ovarian cyst noted, no evidence of torsion, no fluid in cul-de-sac.] CT abdomen pelvis: No evidence of active ureteral stone/obstruction, bilateral renal stones present, appendix normal, uterine fibroids noted per radiology report Course & Med Decision Making Course & Med Decision Making Pertinent Labs and Imaging studies reviewed. (See chart for details) [Lower quadrant/pelvic pain improved with treatment.. Abdomen soft, nonsurgical and reevaluation. CT, US and lab findings are nondiagnostic. Recommend supportive care with PCP follow-up. Return precautions reviewed. Patient verbali zes understanding agreement discharge instructions prior to departure.] Dragon Disclaimer Dragon Disclaimer This electronic medical record was generated, in whole or in part, using a voice recognition dictation system. Departure Departure Impression: Primary Impression: Right lower quadrant abdominal pain Additional Impression: Uterine fibroid Disposition: 01 HOME, SELF-CARE Condition: IMPROVED Referrals: MISSAEL JORDAN MD (PCP) Patient Instructions: Abdominal Migraine, Fibroids, [id number] Additional Instructions: Please go home and rest. Take Tylenol for pain and hydrocodone as needed for additional relief. Follow-up with your PCP and/or [facility] for reevaluation in 3-5 days. He develop new or worsening symptoms, please return to the emergency depa rtment. Scripts Docusate Sodium (COLACE) 100 Mg Capsule 1 CAP PO BID, #30 CAP Prov: THERESA MADERA DO 06/21/19 Hydrocodone/Apap 10-325 (NORCO 10-325 TABLET) 1 Each Tablet 1 TAB PO Q8HRS PRN for PAIN MDD 6, #10 TAB 0 Refills Prov: THERESA MADERA DO 06/21/19 Problem Qualifiers THERESA MADERA DO Jun 21, 2019 09:13
--- NOTE | 2019-06-21 09:51 | RAD ---
PQRS Compliance Statement: One or more of the following individualized dose reduction techniques were utilized for this examination: 1. Automated exposure control 2. Adjustment of the mA and/or kV according to patient size 3. Use of iterative reconstruction technique CT ABDOMEN PELVIS WO CONTRAST Clinical Indication: Right flank and right lower quadrant pain. Comparison: Pelvic ultrasound, earlier same day. Technique: Helical CT imaging of the abdomen and pelvis is performed without IV or oral contrast. Findings: Evaluation of solid organs and bowel is limited without oral and IV contrast, decreasing sensitivity for detection of pathology. Lung bases essentially clear. The cardiac size is normal. Probable normal variant Tal lobe. The liver is homogeneous. The gallbladder, spleen, pancreas, adrenal glands, and abdominal aorta are normal. There are several bilateral nonobstructing renal calculi, sub-5 mm in size. There is no hydronephrosis or perinephric stranding. There is no ureteral calculus. Stomach unremarkable. Moderate sized umbilical hernia. No dilated small bowel. The cecum is mildly distended with stool. The appendix is normal. There is no colon wall thickening. There are several subcentimeter mesenteric and retroperitoneal lymph nodes. There is no adenopathy. No abdominal free fluid. The urinary bladder is normal. Myomatous appearing uterus is better evaluated by pelvic ultrasound. The ovaries are symmetric. There is no pelvic free fluid. Bilateral inguinal lymph nodes may be reactive. No acute bone abnormality. IMPRESSION: 1. No acute abdominal or pelvic abnormality. No obstructive uropathy. 2. Bilateral nonobstructing renal calculi. 3. The appendix is normal. 4. Myomatous uterus. 5. The cecum is mildly distended with stool. Electronically signed by: Delon Bailey MD (06/21/2019 9:48 AM) [id number]
[2019-06-21] MEDS ORDERED: DOCU-109 PO (10:34)
[2019-06-21] MEDS ORDERED: HYDR-3135 PO (10:34)
--- NOTE | 2019-06-21 10:46 | RAD ---
PELVIS W/TV Clinical Indication: Right lower quadrant pain. Comparison: None. TECHNIQUE: Real-time ultrasound imaging of the pelvis using transabdominal and transvaginal window is performed. Findings: Uterus measures 10 x 9.2 x 5.1 cm. There are 2 uterine fibroids, on the left measures up to 3 cm, on the right measures up to 4.6 cm. The endometrial stripe is normal measuring 12 mm. The ovaries are similar in size and demonstrate normal blood flow. There is a small left ovary functional cyst. The ovaries are only seen transabdominally, obscured by the fibroids transvaginally. No pelvic free fluid is identified. There is no evidence of adnexal mass. IMPRESSION: 1. There are 2 uterine fibroids. 2. Normal blood flow in the ovaries. Electronically signed by: Delon Bailey MD (06/21/2019 10:43 AM) [id number]
== END 2019-06-21 10:45 | disposition home or self-care (01) ==
LOC: ER 05:06
DX: D25.9 Leiomyoma of uterus, unspecified (principal); R10.31 Right lower quadrant pain; F41.9 Anxiety disorder, unspecified; I10 Essential (primary) hypertension; Z98.890 Other specified postprocedural states; Z98.51 Tubal ligation status
CPT/HCPCS: 36415; 74176; 76830; 76856; 80048; 81001; 81025; 85025; 99285-25